=== PATIENT | male | born 1940 ===

== ENCOUNTER 2019-04-14 13:55 | Inpatient (IN) ==
--- NOTE | 2019-04-14 14:26 | PROVIDER DOCUMENTATION ---
HPI-General Adult - General Chief Complaint: Abnormal Lab[s] Stated Complaint: DR NATION REFERRED Time Seen by Provider: 04/14/19 14:11 Source: patient Allergies/Adverse Reactions: Patient Allergies Allergy/AdvReac Type Severity Reaction Status Date / Time ciprofloxacin [From Cipro] Allergy HIVES Verified 09/10/17 21:11 ciprofloxacin HCl * Allergy HIVES Verified 09/10/17 21:11 [From Cipro] Home Medications: Home Medication List Medication Instructions Recorded Confirmed Last Taken Type Ascorbic Acid [Vitamin C] 500 mg PO DAILY 03/13/14 03/21/15 03/20/15 08:00 History Aspirin [Ecotrin] 81 mg PO DAILY 03/13/14 03/21/15 03/20/15 08:00 History Beta-Carotene [Beta Carotene] 25,000 unit PO DAILY 03/13/14 03/21/15 03/20/15 08:00 History Carvedilol 12.5 mg PO BID 03/13/14 03/21/15 03/20/15 08:00 History Cephalexin [Keflex] 250 mg PO DAILY 03/13/14 03/21/15 03/20/15 08:00 History Cholecalciferol (Vitamin D3) 2,000 unit PO DAILY 03/13/14 03/21/15 03/20/15 08:00 History [Vitamin D3] Ferrous Sulfate [Iron] 130 mg PO DAILY 03/13/14 03/21/15 03/20/15 08:00 History Folic Acid 400 mcg PO DAILY 03/13/14 03/21/15 03/20/15 08:00 History Glucosamine 1,500 mg PO DAILY 03/13/14 03/21/15 03/20/15 08:00 History Levothyroxine [Synthroid] 50 microgm PO DAILY 03/13/14 03/21/15 03/20/15 08:00 History Omeprazole 40 mg PO BID 03/13/14 03/21/15 03/20/15 20:00 History Prasugrel [Effient] 10 mg PO DAILY 03/13/14 03/21/15 03/20/15 08:00 History SIMVAstatin [Zocor] 20 mg PO QHS 03/13/14 03/21/15 03/20/15 20:00 History Sodium Bicarbonate 2,600 mg PO BID 03/13/14 03/21/15 03/20/15 20:00 History Vitamin B Complex 1 tab PO DAILY 03/13/14 03/21/15 03/20/15 08:00 History Trazodone [Desyrel] 50 mg PO QHS 03/22/15 03/22/15 03/20/15 20:00 History Amiodarone [Cordarone] 200 mg PO DAILY 03/23/15 03/23/15 03/22/15 09:00 History Prednisone 40 mg PO DAILY #6 tablet 03/23/15 Unknown Rx - History of Present Illness -Gen Adult Nature of Presenting Problems: 78 YOM with PMH of COPD, Myelofibrosis 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 He reports symptomatically he has felt SOB more so than usual with intermittent dizziness. He denies fever, chills, CP, N/V/D. He has never required transfusion in the past. Per his daughter in law she has also noted increased bone pain recently making it difficult to sleep at night, this has not been discussed with hem/onc at this time. He denies bloody or black stools Location of Pain/Injury: reports: none Pain Radiation: reports: no radiation Quality of Pain: reports: none Severity: reports: moderate Onset/Duration: reports: unsure (labs done on friday called today) Timing: reports: still present Context/Activities at Onset: reports: none Modifying Factors: improves with: nothing Associated Symptoms: reports: dizziness, fatigue, shortness of breath Similar Symptoms Previously?: Yes Recently seen or treated by another doctor?: Yes Review of Systems - Adult - REVIEW OF SYSTEMS - ADULT Constitutional: reports: jeb. denies: no symptoms reported, see HPI, chills, fever, night sweats, weight gain, weight loss, other Eyes: reports: no symptoms reported. denies: see HPI, discharge, dry eyes, decreased vision, blurred vision, double vision, eye pain, redness, other Ears, Nose, Mouth & Throat: reports: no symptoms reported. denies: see HPI, ear discharge, ear pain, hearing loss, tinnitus, epistaxis, sinus problem, nose pain, loose teeth, mouth/dental pain, mouth swelling, hoarseness, throat pain, throat swelling, other Cardiovascular: reports: no symptoms reported. denies: see HPI, chest pain, edema, heart murmur, irregular heart rate, orthopnea, palpitations, poor circulation, PND, syncope, other Respiratory: reports: see HPI, dyspnea on exertion. denies: no symptoms reported, chronic cough, cough, excessive sputum production, hemoptysis, pleurisy, shortness of breath, wheezing, other Gastrointestinal: reports: no symptoms reported. denies: see HPI, abdominal pain, hematemesis, constipation, diarrhea, difficulty swallowing, frequent heartburn, nausea, poor appetite, rectal bleeding, vomiting, other Genitourinary: reports: no symptoms reported. denies: see HPI, dysuria, discharge, frequency, flank pain, frequent UTI's, hematuria, hesitency, incontinence, urinary retention, urgency, other Musculoskeletal: reports: bone pain. denies: no symptoms reported, see HPI, back pain, frequent leg cramps, joint pain, joint swelling, muscle aches, muscle weakness, neck pain, other Integumentary: reports: no symptoms reported. denies: see HPI, hives, hair loss, itching, mole changes, nail changes, rash, skin sores/ulcer, skin thickening, other Neurological: reports: dizziness/vertigo. denies: no symptoms reported, see HPI, ataxia, headache/migraines, loss of balance, numbness, paresthesia, seizure, slurred speech, syncope, tremors, other Psychiatric: reports: no symptoms reported. denies: see HPI, anxiety, anti-depressant use, alcohol/drug dependence, depression, emotional problems, insomnia, panic attacks, suicidal thoughts, other Endocrine: reports: no symptoms reported. denies: see HPI, change in skin pigment, excessive sweating, goiter, cold intolerance, heat intolerance, increased hunger, increased thirst, polyuria, other Hematologic/Lymphatic: reports: no symptoms reported. denies: see HPI, blood clots, easy bruising, low blood count, lymphedema, prolonged bleeding, swollen lymph nodes, transfusions, other Allergic/Immunologic: reports: no symptoms reported. denies: see HPI, allergic reactions, allergic rhinitis, asthma, eczema, food allergy, frequent infections, hay fever, hives, positive PPD, urticaria, other Past History - Adult - PAST MEDICAL HISTORY-ADULT Review of Records: reports: Nursing Assessment Review, Social history reviewed & non-contributory. Major Childhood Illnesses: reports: denies history Cardiovascular: reports: CAD, HTN, pacemaker Respiratory: reports: COPD - PRIOR SURGERIES/PROCEDURES Surgical/Procedure History: reports: CABG, cardiac stent, pacemaker, other (Mcgarry pouch) - IMMUNIZATION STATUS Childhood Immunizations: See Nurse Assessment Flu Vaccine: See Nurse Assessment Physical Exam-General - PHYSICAL EXAM-ADULT Initial Vital Signs Reviewed: Yes - CONSTITUTIONAL General Appearance: alert, no apparent distress - EYES Eyes: PERRL/EOMI, pink conjunctivae - HEAD, EARS, NOSE, MOUTH & THROAT HENMT: normocephalic/atraumatic, moist mucous membranes, normal ENT inspection - NECK Neck: non-tender, full range of motion, supple - RESPIRATORY Respiratory: chest non-tender, lungs clear, normal breath sounds, no pleuratic chest pain, no respiratory distress, no accessory muscle use - CARDIOVASCULAR Cardiovascular: normal peripheral pulses, regular rate, rhythm, no edema, no gallop, no JVD, no murmur - GASTROINTESTINAL (ABDOMEN) Abdominal Exam: normal bowel sounds, non tender, soft - LYMPHATIC Lymphatic: no adenopathy - MUSCULOSKELETAL Back Exam: normal inspection, no CVA tenderness, no vertebral tenderness Extremity: normal range of motion, non-tender, normal gait, normal inspection Peripheral Pulses: radial (R): 2+, radial (L): 2+ - SKIN Integumentary: normal turgor, warm/dry. negative: normal color (pale) - NEUROLOGIC Neurologic: grossly normal - PSYCHIATRIC Psych/Mental Status: normal mood/affect, oriented x 3 Progress - PLAN OF CARE/RESULTS Progress/Plan/Lab Results: Vital Signs - 8 hr 04/14/19 14:06 Temperature 97.3 F L Pulse Rate 66 Respiratory Rate 16 Blood Pressure 119/55 O2 Sat by Pulse Oximetry 98 Orders Category Date Time Status cxr [CHEST-2 VIEWS] [RAD] Stat Exams 04/14/19 14:20 Ordered CBC WITH ELECTRONIC DIFF [HEME] Stat Lab 04/14/19 14:10 Uncollected COMPREHENSIVE METABOLIC PANEL [CHEM] Stat Lab 04/14/19 14:10 Uncollected PROTIME WITH INR [COAG] Stat Lab 04/14/19 14:10 Uncollected PTT [COAG] Stat Lab 04/14/19 14:10 Uncollected TYPE & SCREEN [BBK] Stat Lab 04/14/19 14:10 Uncollected GI Bleed (possible) Stat Oth 04/14/19 14:09 Ordered 1420: reviewed initial POC with patient and Daughter in law Result Diagrams: 04/14/19 14:10 04/14/19 14:10 - XRAY 1 XRAY Study: Chest Impression: See EMR Report ( EXAM: CHEST-2 VIEWS 04/14/2019 HISTORY: SOB TECHNIQUE: Two views of the chest COMMENT: Compared to the previous study of 12/21/2018 there is apparent increased loculated pleural effusion on the right. The heart size remains enlarged. There is continued blunting of the left costophrenic angle which is probably due to fibrosis. IMPRESSION: Increased right pleural effusion. Electronically signed by Kojo Reyes 04/14/2019 2:54 PM 04/14/19 1454 Interpreting Physician: Kojo Reyes MD Dictated Date/Time: 04/14/19 1453 cc: Lisa Roman; Rosa Nation MD) - CONSULTS/PCP/HOSPITALIST Notification #1 *Consult/PCP/Hospitalist*: DEBI DECKER Time Discussed: 17:15 Consult Disposition: Admit Departure - Departure Date of Disposition Decision: 04/14/19 Time of Disposition Decision: 17:14 DIAGNOSIS: Pleural effusion, CKD (chronic kidney disease), Anemia, Neutropenia, UTI (u rinary tract infection) Disposition: ADMITTED INPATIENT 09 Certified Medical Emergency: Emergent Condition: Stable Referrals and Follow-Ups: Rosa Nation MD [Primary Care Provider] - - Critical Care Note This patient required my direct & personal management of CC.: No Attestation - Physician/ DELISA Attestation Patient care was provided by Advanced Practice Provider:: Yes Advanced Practice Provider:: Lisa Roman Advanced Practice Provider documentation review:: The Mid-level provider documentation, treatment plan and medical decision making was reviewed by the physician who agrees with all treatment and medical decision making by the MLP. The physician spent face to face time with patient:: No Advanced Practice Provider documentation review:: Supervising physician onsite and consulted in the evaluation and care of this patient. The physician did not have a face to face encounter with the patient.
--- NOTE | 2019-04-14 14:56 | Diag Imaging Result Doc PS360 ---
EXAM: CHEST-2 VIEWS 04/14/2019 HISTORY: SOB TECHNIQUE: Two views of the chest COMMENT: Compared to the previous study of 12/21/2018 there is apparent increased loculated pleural effusion on the right. The heart size remains enlarged. There is continued blunting of the left costophrenic angle which is probably due to fibrosis. IMPRESSION: Increased right pleural effusion. Electronically signed by Kojo Reyes 04/14/2019 2:54 PM
[2019-04-14 15:00] LABS: AGAP 14; ALB/GLOB RATIO 2.4; ALBUMIN 4.3 g/dL (3.5-5.0); ALKALINE PHOSPHATASE 52 U/L (32-122); BUN 35 mg/dL (8-22); CHLORIDE 99 mmol/L (98-107); COSMO 285; CREATININE 3.1 mg/dL (0.7-1.2); GLUCOSE 165 mg/dL (70-104); GOT 11 U/L (10-34); GPT 7 U/L (10-44); SODIUM 137 mmol/L (136-145); TCO2 24 mmol/L (25-35); TOTAL BILIRUBIN 0.79 mg/dL (0.20-1.00); TOTAL PROTEIN 6.1 g/dL (6.3-8.3)
[2019-04-14 16:21] LABS: INR 1.19; PROTIME 15.3 Seconds (11.0-16.0)
[2019-04-14 16:31] LABS: BASO# 0.01 X1000 (0.0-0.2); BASO% 0.5 % (0.0-0.8); EOS# 0.02 X1000 (0.0-0.7); HEMOGLOBIN 7.1 g/dL (14.0-18.0); LYMPH# 0.53 X1000 (1.2-3.4); LYMPH% 27.5 % (20.5-51.1); MCH 29.5 PG (27-31); MCHC 29.6 g/dL (33-37); MCV 99.6 FL (81-99); MONO# 0.12 X1000 (0.11-0.59); MONO% 6.2 % (1.7-9.3); MPV 11.7 FL (7.4-10.4); NEUT# 1.25 X1000 (1.4-6.5); NEUT% 64.8 % (42.2-75.2); PLT 122 X1000 (130-400); RBC 2.41 XMIL (4.7-6.1); RDW 16.8 % (11.5-14.5); WBC 1.93 X1000 (4.8-10.8)
[2019-04-14 16:55] LABS: URINE SOURCE CATH
[2019-04-14 17:03] LABS: BILIRUBIN URINE NEGATIVE (NEGATIVE); BLOOD URINE NEGATIVE (NEGATIVE); COLOR YELLOW; GLUCOSE URINE NEGATIVE (NEGATIVE); KETONE URINE NEGATIVE (NEGATIVE); LEUKOCYTES URINE LARGE (NEGATIVE); NITRITE URINE NEGATIVE (NEGATIVE); PH URINE 6.5; PROTEIN URINE 30 mg/dL (NEGATIVE); TURBIDITY URINE CLEAR (CLEAR); UR EPITHELIAL CELLS <10 /HPF (<10); URINE BACTERIA 4+ /HPF; URINE RBC <10 /HPF (<10); URINE WBC TNTC /HPF (<10); UROBILINOGEN URINE NORMAL (NORMAL)
[2019-04-14] MEDS ORDERED: ROCEPHIN 1 GM in NS 50 ML IV ONE (17:14)
[2019-04-14 17:21] LABS: EOS 4 % (1-10); HYPOCHROM 2+; LYMPHS 32 % (21-51); POIKILOCYTOSIS 1+; SEGS 64 % (42-75)
[2019-04-14] MEDS ORDERED: ZOFRAN IV PRN (18:10)
[2019-04-14] MEDS ORDERED: TYLENOL PO PRN (18:10)
--- NOTE | 2019-04-14 19:36 | HISTORY AND PHYSICAL ---
ADDENDUM: The patient seen and examined by me [id number]. All laboratory, vital signs and images were reviewed. The patient presented to the emergency department with a chief complaint of dizziness and shortness of breath with minimal physical activity. He went to the [facility] to get a lab work and they called him today and they requested him to come to the emergency department because of the low hemoglobin. He has a history of myelofibrosis and he is pancytopenic. He has bacteriuria, but he is not symptomatic though. His creatinine is elevated and it looks like this is probably his baseline based on his previous records, he does have a chronic kidney disease, he will receive a couple units of PRBCs. Hopefully, tomorrow this patient can be discharged home with a followup with Dr. Kiser, which is his distribution center administrator/oncologist and also he needs to follow at the [facility] for further treatment. If this patient is asymptomatic tomorrow, hopefully he can go back home. I agree with the rest of the nurse practitioner's assessment and plan. cc: Abel Ibrahim MD
--- NOTE | 2019-04-14 19:45 | HISTORY AND PHYSICAL ---
PRIMARY CARE PROVIDER: Dr. Rosa Walker. ONCOLOGIST: Dr. Kiser in [place]. CHIEF COMPLAINT: Shortness of breath, dizziness, lightheadedness, and was told to come in for a low blood count. HISTORY OF PRESENT ILLNESS: Mr. Reid Kemp is a 78-year-old male with a medical history of most recent diagnosis of myelofibrosis January 2019. He has not had to have any blood transfusions since this diagnosis, but he noticed over the last month and a half he has been having a little more shortness of breath, some lightheadedness, was supposed to go home early next week for a follow-up appointment with his oncologist. Went in to see Dr. Walker yesterday and they doni lab work and called him today to tell in that his hemoglobin and hematocrit was low and to come to the hospital for blood transfusion. He denies any gastrointestinal symptoms. Denies having black, tarry stools or blood in the stool. Denies blood in urine. His hemoglobin and hematocrit here are 7.1 and 24. His blood pressure is stable. We are going to go ahead and transfuse. PAST MEDICAL HISTORY: 1. Bladder cancer in 1983, status post COCH pouch, which he stated worked for years, but now he is having to self cath. 2. Atrial fibrillation, on amiodarone. 3. Myocardial infarction with coronary artery disease. He has had a CABG and stent. 4. Congestive heart failure. 5. Myelofibrosis January 2019. 6. GERD. 7. Hyperlipidemia. 8. Hypertension. 9. Hypothyroidism. 10. COPD, no home oxygen. 11. CKD stage 3. 12. Iron deficiency anemia. 13. Oral cancer x3. 14. Skin cancer on the face and head. SURGICAL HISTORY: 1. COCH pouch ileostomy pouch. 2. Coronary artery bypass grafting. 3. Cardiac stent. 4. Right nephrectomy it was nonfunctional. 5. Oral cancer removed. 6. Lymph node removed from the left axillary region. 7. Tonsillectomy. 8. Skin cancer excision. 9. Permanent pacemaker defibrillator. 10. He is scheduled for a cataract surgery next Friday. SOCIAL HISTORY: He quit smoking in 2016. He started at the age of 17. He was less than a pack per day smoker. Denies any smokeless tobacco. Denies alcohol. Denies illicit drug use. He is retired. 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 He is , has 2 children. He is a . FAMILY HISTORY: Mother had TB. Father had coronary disease and diabetes. ALLERGIES: Cipro, Bactrim. HOME MEDICATIONS: Home medications yet to be reconciled. REVIEW OF SYSTEMS: Fourteen point review of systems are complete and all are negative except for those mentioned above in HPI. PHYSICAL EXAMINATION: VITAL SIGNS: Temperature 97.3 degrees, heart rate 66, respiratory rate 16, blood pressure 119/55, O2 saturation 98% on room air, 5 feet 9 inches tall, 190 pounds. BMI is 28.1. GENERAL: Mr. Reid Kemp is a 78-year-old male. He is in no acute distress, able answer questions appropriately. HEENT: Atraumatic, normocephalic. Pupils equal, round, reactive to light. Extraocular movements intact. Mucous membranes are moist. NECK: Trachea midline. CARDIOVASCULAR: S1, S2. Regular rate and rhythm. No rubs, gallops, murmurs. He has 1+ lower extremity edema. +2 dorsalis and radial pulses. Negative JVD or carotid bruits. PULMONARY: Clear to auscultation bilateral breath sounds. No accessory muscle use or work of breathing noted. GI: Soft, nontender, nondistended. Positive bowel sounds x4. EXTREMITIES: Moves all extremities equally. Decreased range of motion. NEUROLOGIC: A and O x3. Follows commands. Sensory is intact. SKIN: Warm, dry, intact. LABORATORY DATA: White blood cells 1.93, hemoglobin 7.1, hematocrit 24, platelet count 122,000. INR is 1.19, PTT is 28. Sodium 137, potassium 5, BUN 35, creatinine 1 is 3.1, glucose 165, calcium 9, bilirubin 0.79, AST 11, ALT 7. Albumin is 4.3. Urinalysis 30 protein, large leukocytes, too numerous to count white blood cells, 4+ bacteria. IMAGING: Chest x-ray: Increased right pleural effusion. ASSESSMENT AND PLAN: 1. Myelofibrosis with symptomatic anemia. He is going to receive 1 unit of packed red blood cells. 2. Anemia, rule out cause being for iron deficiency anemia. He does have a history of iron deficiency anemia and is on iron supplementation. We need to get a stool to rule out a GI source. 3. Congestive heart failure. He has a permanent pacemaker defibrillator. He does have lower extremity edema. Still waiting for home medications to be reconciled. His last echocardiogram here in 2016 and his ejection fraction was 40%. We may go ahead and get an updated echo in the morning. He does complain of shortness of breath. It could be related to the congestive heart failure as well, and if he is going to get blood, he may need some Lasix. 4. History of coronary artery disease, coronary artery bypass grafting and stent. Once his home medications are reconciled, we will be able to continue his aspirin, statin and beta franko. 5. History of atrial fibrillation. It looks like he is on amiodarone. We will resume that if it is if he still on none. 6. Gastroesophageal reflux disease. Continue omeprazole. 7. Hypothyroidism. We will continue the Synthroid. 8. Chronic kidney disease stage 3 or stage 4. Baseline creatinine currently is 3.1. The baseline he runs anywhere from the lowest was 2.3 back in 2016, but he has been mostly 2.7 up to 4. 9. Possible urinary tract infection. He denies any symptoms. He does not have a bladder. He has a COCH pouch and he has to self cath now. He is unable to release his own urine, or it could be contamination from self-catheterization. He got a dose of Rocephin in the ER. He does have a low white count. Will probably just continue the Rocephin until we get his culture back. 10. Chronic obstructive pulmonary disease, no exacerbation. No home oxygen. 11. Hyperlipidemia. Will continue statin once home medications are reconciled. 12. Hypertension. Again, currently he is stable but we will continue his home medications once they are reconciled. 13. Deep venous thrombosis prophylaxis. SCDs. Hold blood thinners for now. Dictated by DEBI Bailon for Abel Ibrahim MD cc: DEBI Bailon MD [facility]
[2019-04-14 19:49] LABS: IRON SATURATION 7 %; TIBC 404 ug/dL; TOTAL IRON 29 ug/dL (53-167); UNBOUND IRON 375 ug/dL (112-346)
[2019-04-14 20:01] LABS: FERRITIN 15 ng/mL (30-400)
[2019-04-14] MEDS ORDERED: NS 250 ML ONE (22:48)
[2019-04-15 07:59] LABS: EOS# 0.03 X1000 (0.0-0.7); EOS% 1.5 % (0.0-10.0); HEMATOCRIT 26.1 % (42.0-52.0); HEMOGLOBIN 7.6 g/dL (14.0-18.0); LYMPH# 0.61 X1000 (1.2-3.4); LYMPH% 31.3 % (20.5-51.1); MCH 28.5 PG (27-31); MCHC 29.1 g/dL (33-37); MCV 97.8 FL (81-99); MONO# 0.15 X1000 (0.11-0.59); MONO% 7.7 % (1.7-9.3); MPV 11.3 FL (7.4-10.4); NEUT# 1.16 X1000 (1.4-6.5); NEUT% 59.5 % (42.2-75.2); PLT 109 X1000 (130-400); RBC 2.67 XMIL (4.7-6.1); RDW 16.6 % (11.5-14.5); WBC 1.95 X1000 (4.8-10.8)
[2019-04-15 08:41] LABS: AGAP 14; ALB/GLOB RATIO 2.4; ALBUMIN 4.3 g/dL (3.5-5.0); ALKALINE PHOSPHATASE 50 U/L (32-122); BUN 34 mg/dL (8-22); CALCIUM 9.3 mg/dL (8.8-10.2); CHLORIDE 101 mmol/L (98-107); COSMO 283; CREATININE 2.9 mg/dL (0.7-1.2); GLUCOSE 97 mg/dL (70-104); GOT 11 U/L (10-34); GPT 6 U/L (10-44); MAGNESIUM 2.1 mg/dL (1.5-2.7); SODIUM 138 mmol/L (136-145); TCO2 23 mmol/L (25-35); TOTAL BILIRUBIN 0.84 mg/dL (0.20-1.00); TOTAL PROTEIN 6.1 g/dL (6.3-8.3)
[2019-04-15] MEDS ORDERED: ROCEPHIN 1 GM in NS 50 ML IV SCH (09:00)
[2019-04-15 15:49] VITALS: BP 161/74
--- NOTE | 2019-04-15 19:27 | DISCHARGE SUMMARY ---
ADMISSION DATE: 04/14/2019 DISCHARGE DATE: 04/15/2019 DISPOSITION: Home. FOLLOW-UP INSTRUCTIONS: 1. Dr. Walker. 2. Dr. Kiser in [place]. CONSULTATION DURING THIS ADMISSION: None. IMAGING STUDIES: Showed increased right pleural effusion. ADMISSION DIAGNOSES: 1. Myelofibrosis with symptomatic anemia. 2. Anemia. 3. Congestive heart failure. 4. History of coronary artery disease. 5. Possible urinary tract infection. 6. Chronic obstructive pulmonary disease. DIAGNOSIS AT THE TIME OF DISCHARGE: 1. Symptomatic anemia. The patient is status post 1 packed red blood cell transfusion. 2. Anemia of multifactorial etiology including #1 myelofibrosis and #2 possible gastrointestinal bleed. 3. Anemia with positive fecal occult blood testing associated with severe iron deficiency, concerning for chronic gastrointestinal blood loss. The patient was advised to stay for gastrointestinal evaluation; however, he is very adamant that he wants to go. He wants to be discharged. He has an appointment with his oncologist, who will take care of all this. 4. History of coronary artery disease status post coronary artery bypass graft and stents in the past. For now, we will withhold the patient's clopidogrel. Continue with the aspirin and I would advise that he follows up with Gastroenterology at the earliest possible time. 5. Atrial fibrillation on amiodarone. 6. Status post coronary artery bypass grafting. 7. Recently diagnosed myelofibrosis. Patient follows up with Dr. Kiser. 8. History of bladder cancer. Patient is status post total cystectomy with CRESPO pouch ileostomy. 9. Asymptomatic bacteriuria. 10. Chronic obstructive pulmonary disease not exacerbated. DISCHARGE MEDICATIONS: 1. Cholecalciferol. 2. Omeprazole 40 mg b.i.d. 3. Glucosamine. 4. Levothyroxine 100 mcg p.o. daily. 5. Carvedilol 6.25 b.i.d. 6. Bicarbonate 2600 b.i.d. 7. Keflex. 8. Amiodarone 200 p.o. daily. 9. Trazodone 200 mg p.o. daily. 10. Atorvastatin 20 mg p.o. daily. 11. Furosemide 40 mg p.o. daily. 12. Medication that has been withheld: Clopidogrel and aspirin. PRESENTING COMPLAINT: Shortness of breath, dizziness, abnormal labs. HISTORY OF PRESENTING COMPLAINT: Mr. Kemp is a 78-year-old gentleman with multiple comorbidities, recently diagnosed with myelofibrosis, was called by her primary care because of abnormal labs, was asked to come to the emergency room. Upon presentation, patient was found to have hemoglobin of 7.1, and he was lightheaded. He was admitted for further medical care. HOSPITAL COURSE: Mr. Kemp was admitted was transfused 1 PRBC. This morning, he refers to feel a whole lot better. His iron studies suggest that he is very iron deficient. His occult blood testing is positive. We are concerned that Mr. Kemp has a GI bleed and we recommended he stays inpatient for GI evaluation including possible EGD and colonoscopy. Mr. Kemp on the other hand is extremely adamant that he wants to be discharged and that if he is not discharged, he will be sign AMA. He said he has an appointment tomorrow with Dr. Kiser who is his oncologist and he has been taking care of all his medical care. Mr. Kemp also refers that he is not hemorrhaging at this point and that he will surely follow up with his primary care for GI referral. I have advised that for now he stop taking the aspirin and clopidogrel. Continue with his PPI until he gets GI evaluation before he goes back on the dual anti-platelet therapy. All the discharge instructions have been discussed with him. He voiced understanding. Time spent for discharge is 35 minutes. cc: MD Rosa Schuster MD Dr. Ortega
[2019-04-16] MEDS ORDERED: ROCEPHIN 1 GM in NS 50 ML IV SCH (02:00)
== END 2019-04-15 16:14 | disposition home or self-care (01) | DRG 378 ==
LOC: ED 13:55 → SUATTDRO 21:27 → 3N 21:27
PROVIDERS: ATTEND Internal Medicine